=== PATIENT | female | born 1995 | race Two or more races ===

== ENCOUNTER 2016-10-02 17:00 | Emergency (ER) | payer OTHER ==
[~2016-10-02] VITALS: Ht 172.7 cm; Wt 59.0 kg
[2016-10-02 17:00] VITALS: BP 117/64
[~2016-10-02 17:00] MED LIST: ACET50TA PO; IBUP60TA PO; PREN1TAB11 PO
[2016-10-02 18:15] LABS: BASO % 0.4 % (0.0-1.0); EOS # 0.2 K/mm3 (0.0-0.50); LARGE UNSTAINED CELL # 0.1 K/mm3 (0.0-0.4); LYMPH # 1.9 K/mm3 (1.5-6.5); LYMPH % 20.9 % (24.0-44.0); MEAN CORPUSCULAR HEMOGLOBIN 27.8 pg (27.0-33.0); MEAN CORPUSCULAR HGB CONC 32.5 g/dl (32.0-36.5); MEAN CORPUSCULAR VOLUME 85.6 fl (80.0-96.0); MONO # 0.4 K/mm3 (0.0-0.8); MONO % 4.9 % (0.0-5.0); NEUTROPHILS % 69.8 % (36.0-66.0); PLATELET COUNT, AUTOMATED 275 k/mm3 (150-450); WHITE BLOOD COUNT 8.5 K/mm3 (4.0-10.0)
--- NOTE | 2016-10-02 19:20 | REPUSA ---
Clinical history: vaginal bleeding. Findings: Real-time transabdominal and transvaginal ultrasound images of the pelvis were obtained. Th ere is a single live intrauterine .. The crown rump length measures 0.3 cm. heart rate measures 82 bpm.. There is a large, complex hypoechoic collection adjacent to the gestational sac me asuring 2.4 x 1.1 x 3.7 cm. An anteverted uterus is noted, measuring 9.0 x 5.2 x 7.2 cm. The uterus demonstrates normal echotexture and echogenicity. The endometrial stripe measures 3 mm and is within normal limits. The right ovary measures 2.5 x 3.1 x 1.7 cm. The left ovary measures 1.8 x 2.3 x 1.6 cm. No adnexal masses are seen. Color Doppler flow is seen within both ovaries. There is no evidence of free fluid. Impression: Single live intrauterine measuring 5 weeks 6 days, with a heart rate of 8 2 bpm. Estimated due date is 05/22/2017. Large subchorionic hemorrhage noted. Follow-up is recommended as clinically indicated.
[2016-10-02] MEDS ORDERED: MACR100C3 PO (20:28)
[2016-10-02] MEDS ORDERED: NITROFURANTOIN (MACROBID) 100 MG CAP PO ONE (20:30)
== END 2016-10-02 20:39 | disposition home or self-care (01) ==
LOC: M ED 18:21
DX: O23.41 Unspecified infection of urinary tract in pregnancy, first trimester (principal); O20.8 Other hemorrhage in early pregnancy; Z3A.18 18 weeks gestation of pregnancy; Z91.040 Latex allergy status